=== PATIENT | male | born 1955 | race American Indian/Alaskan Native ===

== ENCOUNTER 2017-07-05 14:22 | Outpatient (CLI) | payer OTHER ==
--- NOTE | 2017-07-05 14:58 | XRay Report ---
Right hip 2 views. History: Right hip replacement. Findings: A total hip prosthesis is demonstrated in satisfactory position with no radiographic signs of complications. No significant soft tissue abnormalities are seen. Impression: Normal postoperative appearance.
== END 2017-07-05 14:23 | disposition home or self-care (01) ==
LOC: SPVIMAG 14:22
PROVIDERS: ATTEND Orthopaedic Surgery Sports Medicine
DX: Z47.1 Aftercare following joint replacement surgery (principal); Z96.641 Presence of right artificial hip joint